=== PATIENT | female | born 1960 | race Two or more races ===

== ENCOUNTER 2018-12-14 13:30 | Emergency (ER) | payer SELFPAY ==
[~2018-12-14] VITALS: Ht 157.5 cm; Wt 82.6 kg
[2018-12-14 14:14] VITALS: BP 134/87
[2018-12-14] MEDS ORDERED: IBUPROFEN 800 MG TAB PO ONE (16:00)
== END 2018-12-14 16:53 | disposition home or self-care (01) ==
LOC: ER 13:30
DX: M79.645 Pain in left finger(s) (principal); X58.XXXA Exposure to other specified factors, initial encounter; Y93.89 Activity, other specified; Y99.8 Other external cause status; Y92.89 Other specified places as the place of occurrence of the external cause
CPT/HCPCS: 29125; 73130